=== PATIENT | male | born 1985 | race Caucasian/White ===

== ENCOUNTER 2022-07-19 19:03 | Emergency (ER) | payer OTHER | END 2022-07-19 21:27 | disposition home or self-care (01) | LOC: JD.ED 19:03 | DX: H66.002 Acute suppurative otitis media without spontaneous rupture of ear drum, left ear (principal); H11.32 Conjunctival hemorrhage, left eye; F17.210 Nicotine dependence, cigarettes, uncomplicated; Z79.899 Other long term (current) drug therapy | CPT/HCPCS: 99282 ==